=== PATIENT | male | born 1960 | race American Indian/Alaskan Native ===

== ENCOUNTER 2019-10-03 10:30 | Outpatient (CLI) | payer OTHER | END 2019-10-03 20:54 | disposition home or self-care (01) | LOC: US 10:30 | DX: E03.9 Hypothyroidism, unspecified (principal) ==

== ENCOUNTER 2019-10-24 15:35 | Outpatient (CLI) | payer OTHER | END 2019-10-24 19:04 | disposition home or self-care (01) | LOC: LAB 15:35 → EDSEX 15:35 → LAB 19:04 | DX: R82.81 Pyuria (principal); R10.30 Lower abdominal pain, unspecified | CPT/HCPCS: 87088 ==

== ENCOUNTER 2020-03-27 09:05 | Outpatient (CLI) | payer OTHER | END 2020-03-27 20:29 | disposition home or self-care (01) | LOC: US 09:05 | DX: R10.84 Generalized abdominal pain (principal) ==

== ENCOUNTER 2021-10-07 08:02 | Outpatient (CLI) | payer OTHER | END 2021-10-07 19:07 | disposition home or self-care (01) | LOC: CT 08:02 | PROVIDERS: ATTEND Internal Medicine | DX: R10.32 Left lower quadrant pain (principal) | CPT/HCPCS: 36415; 82565; 84520; Q9963 ==

== ENCOUNTER 2023-05-16 10:49 | Outpatient (CLI) | payer OTHER | END 2023-05-16 18:54 | disposition home or self-care (01) | LOC: RAD 10:49 | PROVIDERS: ATTEND Internal Medicine | DX: Z12.31 Encounter for screening mammogram for malignant neoplasm of breast (principal); Z78.0 Asymptomatic menopausal state ==